=== PATIENT | female | born 1970 | race Caucasian/White ===

== ENCOUNTER 2016-12-18 15:49 | Emergency (ER) | payer OTHER ==
--- NOTE | ~2016-12-18 | US85 ---
[facility] A Service [facility] RADIOLOGY TEXT RESULTS PATIENT: DMITRI BAILON LOCATION: [place] : 70 UNIT #: [id number] AGE: [address]: Carmelo Palacios DO SEX: F ORDER DR: [id number] [facility] [address] [place], [place] [address] [id number] E MR#: [id number] Acc #: [id number] NAME: DMITRI BAILON : 1970 SEX: F STUDY DATE/TIME: 12/18/2016 16:38 UNIT: [facility] ROOM: STUDY DESCRIPTION: [facility] or [facility] Attending Physician: Carmelo Palacios D.O. Ordering Physician: Carmelo Palacios D.O. Primary Care Physician: Paulette Lee M.D. MEDICAL IMAGING REPORT This report is preliminary unless electronic signature is present EXAM Left lower extremity venous ultrasound HISTORY Left lower extremity pain and swelling for 2 days. TECHNIQUE Venous ultrasound examination of the left lower extremity was performed using grayscale, spectral Doppler and color flow Doppler imaging. FINDINGS The examination is negative. There is no evidence of left lower extremity deep venous thrombus from the groin to the lower calf. Visualized greater saphenous vein is also patent. IMPRESSION Negative examination. No evidence of left lower extremity deep venous thrombosis. Dictated by... Wild Calix M.D. THIS IS AN ELECTRONICALLY VERIFIED REPORT Wild Calix M.D. at 12/18/2016 10:30 PM DFL/pcl TD: 12/18/2016 18:35 JOB #: [id number] MEDICAL IMAGING REPORT [facility] A Service [facility] RADIOLOGY TEXT RESULTS PATIENT: DMITRI BAILON LOCATION: [place] : [birth year] UNIT #: [id number] AGE: [address]: Carmelo Palacios DO SEX: F ORDER DR: Page 1 of 1 COPY
--- NOTE | ~2016-12-18 | CR126 ---
[facility] A Service of [facility] & [facility] RADIOLOGY TEXT RESULTS PATIENT: DMITRI BAILON LOCATION: [facility] : [birth year] UNIT #: [id number] AGE: [address]: Carmelo Palacios DO SEX: F ORDER DR: [id number] [facility] [address] [place], [place] [address] [id number] E MR#: [id number] Acc #: [id number] NAME: DMITRI BAILON : 1970 SEX: F STUDY DATE/TIME: 12/18/2016 16:04 UNIT: [facility] ROOM: STUDY DESCRIPTION: CR Foot Complete Min 3 View Lt Attending Physician: Carmelo Palacios D.O. Ordering Physician: Carmelo Palacios D.O. Primary Care Physician: Paulette Lee M.D. MEDICAL IMAGING REPORT This report is preliminary unless electronic signature is present EXAM Left foot 3 views HISTORY Foot pain and redness and swelling for 1 day. No injury. FINDINGS 3 views left foot demonstrate normal bone alignment. No fracture, joint space narrowing or dislocation. No opaque soft tissue foreign body. Tiny posterior calcaneal spur. IMPRESSION No acute findings. Dictated by... Wild Calix M.D. THIS IS AN ELECTRONICALLY VERIFIED REPORT Wild Calix M.D. at 12/18/2016 10:30 PM DFL/pcl TD: 12/18/2016 18:40 JOB #: [id number] MEDICAL IMAGING REPORT Page 1 of 1 COPY
--- NOTE | ~2016-12-18 | CR20 ---
[facility] A Service of [facility] & [facility] RADIOLOGY TEXT RESULTS PATIENT: DMITRI BAILON LOCATION: [facility] : [birth year] UNIT #: [id number] AGE: [address]: Carmelo Palacios DO SEX: F ORDER DR: [id number] [facility] [address] [place], [place] [address] [id number] E MR#: [id number] Acc #: [id number] NAME: DMITRI BAILON : 1970 SEX: F STUDY DATE/TIME: 12/18/2016 16:02 UNIT: [facility] ROOM: STUDY DESCRIPTION: CR Ankle Min 3 Views Lt Attending Physician: Carmelo Palacios D.O. Ordering Physician: Carmelo Palacios D.O. Primary Care Physician: Paulette Lee M.D. MEDICAL IMAGING REPORT This report is preliminary unless electronic signature is present EXAM Left ankle, 3 views. INDICATIONS Swelling, redness and ankle pain since yesterday. COMPARISON No comparisons. FINDINGS There is soft tissue swelling about the ankle. On the lateral view, there is a tiny osseous fragment posteriorly. I am unsure if it is coming from the posterior portion of the tibia or the fibula and it may represent a tiny avulsion fracture. There is calcaneal spurring. No dislocation. IMPRESSION Soft tissue swelling about the ankle. There is a tiny osseous fragment seen only on the lateral view posterior to the tibia and fibula shadow. This may represent a tiny avulsion injury. However, I am unsure if it is arising from the tibia or the fibula. Dictated by... Henry Alba M.D. THIS IS AN ELECTRONICALLY VERIFIED REPORT Henry Alba M.D. at 12/19/2016 9:37 AM KEYSHAWN/sri TD: 12/18/2016 18:31 JOB #: [id number] MEDICAL IMAGING REPORT Page 1 of 1 COPY
[~2016-12-18 15:49] MED LIST: AMBIEN PO; AMITRYPTYLINE PO; ATARAX PO; BACLOFEN10 MG PO; CELEXA20 MG PO; CLARITIN10 M1 PO; CLARITIN10 MG PO; COUMADIN PO; COUMADIN2.5 MG PO; COUMADIN5 MG PO; CYANOCOBALAM1000 MCG PO; EFFEXOR XR PO; FLEXERIL PO; FLEXERIL10 MG PO; FOLIC ACID1 MG PO; HYDROCORTISONE CREAM; KADIAN20 MG PO; LEVAQUIN PO; LEXAPRO PO; LIDODERM30 EA TOP; MEDROL PO; MICRONOR; NITROGYLCERIN SUBLINGUAL; NITROSTAT SL; OXYCODONE15 MG DOB; OXYCODONE15 MG PO; PERCOCET PO; PERCOCET5/325 PO; PRILOSEC PO; REQUIP1 MG PO; REQUIP2 MG PO; TRAZODONE PO; TRICOR PO; TYLENOL #3 PO; VENOFER100 MG/52 IV; VICODIN; VISTARIL PO; WALGREENS PHARMACY; ZETIA PO
[2016-12-18 16:04] LABS: BASOPHIL% 0.6 % (0-2.5); EOSINOPHIL# 0.1 X10e3 (0-0.7); EOSINOPHIL% 1.9 % (0.0-7.0); HEMATOCRIT 37.7 % (35.0-45.0); HEMOGLOBIN 12.3 gm/dL (12.0-16.0); LYMPHOCYTE# 1.9 X10e3 (1.0-3.5); LYMPHOCYTE% 28.1 % (17.0-45.0); MEAN CELL VOLUME 92.6 FL (83-96); MEAN CORPUSCULAR HEMOGLOBIN 30.2 PG (28-34); MEAN CORPUSCULAR HGB CONC 32.7 g/dL (30-36); MEAN PLATELET VOLUME 7.5 FL (6.5-11.5); MONOCYTE# 0.4 X10e3 (0-1.0); MONOCYTE% 6.2 % (3.0-12.0); NEUTROPHIL# 4.2 X10e3 (1.5-7.1); NEUTROPHIL% 63.2 % (40-75); PLATELET COUNT 223 X10e3 (140-420); RED BLOOD COUNT 4.07 X10e (3.90-5.30); RED CELL DISTRIBUTION WIDTH 13.6 % (11.0-15.5); WHITE BLOOD COUNT 6.6 X10e3 (4.0-10.5)
[2016-12-18 16:06] LABS: DIFF IND NO
[2016-12-18 16:17] LABS: PARTIAL THROMBOPLASTIN TIME 27.1 SECONDS (23.5-31.3); PROTHROMBIN TIME (PATIENT) 10.1 SECONDS (9.6-11.5)
[2016-12-18 16:30] LABS: BUN/CREATININE RATIO 17.14; CALCIUM SERUM 8.8 mg/dL (8.4-10.2); CREATININE SERUM 0.7 mg/dL (0.6-1.4); GLOM FILT RATE Estimated 103.9 mL/min (>60)
== END 2016-12-18 18:00 | disposition home or self-care (01) ==
LOC: CED 15:49
PROVIDERS: Emergency Medicine
DX: M79.89 Other specified soft tissue disorders (principal); F41.9 Anxiety disorder, unspecified; Z90.49 Acquired absence of other specified parts of digestive tract; F17.200 Nicotine dependence, unspecified, uncomplicated; Z88.1 Allergy status to other antibiotic agents; Z88.8 Allergy status to other drugs, medicaments and biological substances
CPT/HCPCS: 29515; 36415; 73610; 73630; 80048; 84703; 85025; 85610; 85730; 93971; 96374; 96375; 99284; J1885; J2920

== ENCOUNTER 2017-02-07 16:05 | Emergency (ER) | payer OTHER | END 2017-02-07 19:08 | disposition home or self-care (01) | LOC: CED 16:05 → CFTX 16:05 | DX: J06.9 Acute upper respiratory infection, unspecified (principal); H65.92 Unspecified nonsuppurative otitis media, left ear; F32.9 Major depressive disorder, single episode, unspecified; Z90.49 Acquired absence of other specified parts of digestive tract; F17.210 Nicotine dependence, cigarettes, uncomplicated; Z88.5 Allergy status to narcotic agent; Z88.0 Allergy status to penicillin; Z88.8 Allergy status to other drugs, medicaments and biological substances | CPT/HCPCS: 99283 ==